=== PATIENT | female | born 1965 | race Caucasian/White ===

== ENCOUNTER 2019-12-15 07:52 | Outpatient (CLI) | payer OTHER, SELFPAY ==
--- NOTE | ~2019-12-15 | MM_ITS ---
EXAMINATION: MM screening mary BI w josesito HISTORY: Screening mammogram TECHNIQUE: Craniocaudal and mediolateral oblique 3-D tomosynthesis images were obtained and synthetic 2-D images were generated. CAD analysis was submitted and interpreted. COMPARISON: 06/27/2017 bilateral diagnostic digital mammogram 02/26/2017 bilateral diagnostic digital mammogram and Limited bilateral breast ultrasound 01/24/2017 and 12/13/2015 bilateral digital screening mammogram examinations BREAST PARENCHYMAL COMPOSITION: There are scattered areas of fibroglandular density. FINDINGS: There is a cluster of grouped microcalcifications in the lower outer left breast; magnifica tion views are recommended. There are some scattered benign calcifications elsewhere in each breast. Otherwise there is no evidence of suspicious mass, calcification, or architectural distortion to sugg est malignancy in either breast. There has been no suspicious interval change. IMPRESSION: Cluster of grouped macrocalcifications in the lower outer right breast; diagnostic mammogram with mag nification views is recommended. BI-RADS Category 0: Incomplete: Needs additional imaging evaluation. Reviewed, dictated and finalized at location A. IMPRESSION: Cluster of grouped macrocalcifications in the lower outer right breast; diagnos tic mammogram with magnification views is recommended. BI-RADS Category 0: Incomplete: Needs additional imaging evaluation.
== END 2019-12-15 07:53 | disposition home or self-care (01) ==
PROVIDERS: PCP Emergency Medicine; Visit Provider Emergency Medicine
DX: Z12.31 Encounter for screening mammogram for malignant neoplasm of breast (principal); R92.8 Other abnormal and inconclusive findings on diagnostic imaging of breast
CPT/HCPCS: 77063; 77067

== ENCOUNTER 2020-01-06 13:14 | Outpatient (CLI) | payer OTHER, SELFPAY ==
--- NOTE | ~2020-01-06 | MM_ITS ---
EXAMINATION: MM diagnostic mammo unilat RT HISTORY: Follow-up breast calcifications TECHNIQUE: Additional 3-D tomosynthesis images of the breasts were performed and synthetic 2-D images were generated. CAD analysis was submitted and interpreted. COMPARISON: Comparison to multiple prior studies sequentially, with oldest reviewed study dated 12/02. BREAST PARENCHYMAL COMPOSITION: Breast composed of scattered areas of fibroglandular density. FINDINGS: There are benign bilateral breast calcifications. Clustered calcifications in the lower asp ect of the right breast layer with medial lateral view, consistent with benign milk of calcium. No [place] spicious masses or architectural distortion. IMPRESSION: 1. No evidence for malignancy in either breast. Benign calcifications. 2. Routine yearly screening mammogram and regular clinical breast examination are recommended. BI-RADS Category 2: Benign finding(s). Reviewed, dictated and finalized at location A. IMPRESSION: 1. No evidence for malignancy in either breast. Benign calcifications. 2. Routine yearly screening mammogram and regular clinical breast examination a re recommended. BI-RADS Category 2: Benign finding(s).
== END 2020-01-06 13:15 | disposition home or self-care (01) ==
PROVIDERS: PCP Emergency Medicine; Visit Provider Emergency Medicine
DX: R92.0 Mammographic microcalcification found on diagnostic imaging of breast (principal)
CPT/HCPCS: 77066

== ENCOUNTER 2020-01-13 14:15 | Outpatient (CLI) | payer OTHER, SELFPAY ==
--- NOTE | ~2020-01-13 | XR_ITS ---
XR knee RT 2V 01/13/2020 14:42 Indication: Right knee pain Procedure: 2 views right knee Comparison: No prior studies for comparison. Findings: Mild osteoarthritis of the right knee. No fracture or traumatic malalignment. No significan t joint effusion. No foreign bodies. Normal anatomic alignment. Impression: 1: Mild osteoarthritis of the right knee. Reviewed, dictated and finalized at location B. Impression: 1: Mild osteoarthritis of the right knee.
== END 2020-01-13 14:16 | disposition home or self-care (01) ==
LOC: ANHIMG 14:21
PROVIDERS: PCP Emergency Medicine; Visit Provider Emergency Medicine
DX: M17.11 Unilateral primary osteoarthritis, right knee (principal)
CPT/HCPCS: 73560

== ENCOUNTER 2020-02-04 15:26 | Outpatient (CLI) | payer OTHER, SELFPAY ==
--- NOTE | ~2020-02-04 | MR_ITS ---
EXAMINATION: MR knee RT wo con DATE: 02/04/2020 16:39 INDICATION: Right knee pain TECHNIQUE: Magnetic resonance imaging (MRI) of the right knee was performed without intravenous contr ast. Sequences included coronal PD-weighted FSE, coronal PD-weighted FS FSE, sagittal T2-weighted FS E, sagittal PD-weighted FS FSE and axial PD weighted fat saturated FSE. COMPARISON: None. FINDINGS: Medial compartment: Medial meniscus is normal. Partial-thickness cartilage loss along the medial femoral condyle as well as the anterior to central weightbearing medial femoral condyle with mild chondral surface regularity along the central weightbearing medial femoral condyle. No degenerative subchondral changes. Lateral compartment: Complex lateral meniscal tear with longitudinal oblique tear plane extending to the inferior articula r surface at the lateral meniscal body and with small radial tear plane involving the inner third of the posterior horn of the lateral meniscus. Region of deep chondral fissuring without degenerative [place] bchondral changes extending from the central to the posterior lateral tibial plateau in the region of the radial tear. Similar fissuring without subchondral changes at the juxtaposed anterior weightbear ing medial femoral condyle. Patellofemoral compartment: Deep chondral ulceration and fissuring with underlying subarticular edema at the medial patellar face t and apical ridge. Less severe partial thickness fissuring without degenerative subchondral changes at the trochlear groove. Ligaments and tendons: Anterior and posterior cruciate ligaments are normal. There is thickening and mild increased signal o f the proximal fibular collateral ligament as well as of the proximal medial collateral ligament, bot h without significant surrounding edema and likely represents scarring related to chronic sprains. Th e extensor mechanism is normal. The visualized medial and lateral hamstring tendons as well as the il iotibial band are normal. Fluid: Moderate to large knee joint effusion. No loose osteochondral bodies identified. Mild prepatellar yulia ma without discrete bursal fluid collection. Osseous/other: Intraosseous ganglion cyst at the posterior aspect of the intercondylar eminence appears to arise stephy r the footplates of the posterior horn of the medial meniscus and the tibial insertion of the posteri or cruciate ligament. No fracture or pathologic marrow replacing process. IMPRESSION: 1. Complex lateral meniscal tear. 2. Mild tricompartmental osteoarthritis with regions of high-grade patellar chondromalacia and modera te grade chondromalacia at the trochlear groove and medial and lateral compartments. 3. Likely reactive moderate to large right knee joint effusion. Reviewed, dictated and finalized at location H. ND CLERK IMPRESSION: 1. Complex lateral meniscal tear. 2. Mild tricompartmental osteoarthritis with regions of high-grade patellar cho ndromalacia and moderate grade chondromalacia at the trochlear groove and media l and lateral compartments. 3. Likely reactive moderate to large right knee joint effusion.
== END 2020-02-04 15:27 | disposition home or self-care (01) ==
LOC: ANHIMG 15:27
PROVIDERS: PCP Emergency Medicine; Visit Provider Emergency Medicine
DX: M17.11 Unilateral primary osteoarthritis, right knee (principal); S83.271A Complex tear of lateral meniscus, current injury, right knee, initial encounter; M22.41 Chondromalacia patellae, right knee; M25.461 Effusion, right knee; M67.461 Ganglion, right knee
CPT/HCPCS: 73721

== ENCOUNTER 2020-09-16 20:25 | Emergency (ER) | payer OTHER, SELFPAY ==
--- NOTE | ~2020-09-16 | XR_ITS ---
XR chest 1V portable 09/16/2020 21:55 Indication: Cough and fever. History of pulmonary embolism. Procedure: AP portable chest Comparison: Comparison to multiple prior studies sequentially, with oldest reviewed study dated 04/2010. Findings: Stable right upper lobe nodule, previously characterized as benign hamartoma by CT. Heart s ize normal. Left lung clear. No pleural effusion. No edema or pneumothorax. No acute osseous abnormal ity. Impression: 1: No acute cardiopulmonary disease. Reviewed, dictated and finalized at location A. Impression: 1: No acute cardiopulmonary disease.
[2020-09-16 20:39] VITALS: BP 172/89; PULSE 78; RESP 20; TEMP 37.6; O2SAT 96
--- NOTE | 2020-09-16 22:35 | ED.URI ---
HPI - URI/Sore Throat General Chief Complaint: Upper Respiratory Infection Stated Complaint: sore throat, cough Time Seen by Provider: 09/16/20 22:28 Source: patient and RN notes reviewed Mode of arrival: ambulatory Limitations: no limitations History of Present Illness HPI Narrative: 55 years old white female complaining of runny nose, nasal congestion, postnasal discharge, sore throat, low-grade fever and a productive cough of clear sputum in the last few days. Covid test is negative at the urgent care today. Patient denies any shortness of breath or chest pain. Related Data Home Medications Medication Instructions Recorded Confirmed cholecalciferol (vitamin D3) 50 2,000 unit PO DAILY 03/19/19 04/18/20 mcg (2,000 unit) capsule Allergies Allergy/AdvReac Type Severity Reaction Status Date / Time No Known Allergies Allergy Verified 09/16/20 21:57 Review of Systems Review of Systems: Narrative: CONSTITUTIONAL: Denies fever, chills, or sweats. EYES: Denies visual changes, redness, or discharge. ENT: Denies rhinorrhea, congestion, sore throat, or otalgia. CARDIOVASCULAR: Denies chest pain, palpitations, or edema. RESPIRATORY: Denies cough or dyspnea. GASTROINTESTINAL: Denies abdominal pain, nausea, vomiting, or diarrhea. GENITOURINARY: Denies dysuria or hematuria. SKIN: Denies rash or itching. MUSCULOSKELETAL: Denies back pain, joint pain, or myalgia. NEUROLOGIC: Denies headache, numbness, or weakness. PSYCHIATRIC: Denies anxiety or depression. [facility] Past Medical History Medical History (Updated 09/16/20 @ 22:39 by Ammy Roman MD) Acid reflux Depression History of stroke 2004 2006 HLD (hyperlipidemia) Miscarriage Surgical History Surgical History H/O brain surgery 2004 2006 [place] teeth removed Family History Family History Mother Family history of premature coronary heart disease Family history of lung cancer, Onset Age: 53 Patient's mother is Family history of malignant neoplasm Sibling Hypertension Father Family history of osteoarthritis Family history of coronary artery disease Acute myocardial infarction Family history of arthritis Social History Social History Smoking status: Former smoker Alcohol intake: never Substance use: current Substance use type: marijuana Exam Narrative: Exam Narrative: General appearance: Well-developed, well-nourished Skin: Normal color Head: Normocephalic, nontraumatic Eyes: Clear conjunctiva ENT: Oropharyngeal erythema, postnasal clear discharge Neck: Supple, nontender Chest and respiratory: Airway patent, no respiratory distress, no accessory muscle use Heart: Regular rate/rhythm Abdomen: Soft, nontender, no organomegaly, quiet bowel sounds Vascular: Normal peripheral pulses, normal capillary refill. Musculoskeletal: Normal range of motion, nontender back Neurologic: Alert and oriented ?3, INS[employer] POWER [employer]IT [employer]ENDER is normal as tested, no gross motor deficit Course Course Emergency Course: Stable Vital Signs Vital signs: Vital Signs Temperature 37.6 C H 09/16/20 20:39 Pulse Rate 78 09/16/20 20:39 Respiratory Rate 20 09/16/20 20:39 Blood Pressure 172/89 H 09/16/20 20:39 Pulse Oximetry 96 09/16/20 20:39 Temperature 37.6 C H 09/16/20 20:39 Pulse Rate 78 09/16/20 20:39 Respiratory Rate 20 09/16/20 20:39 Blood Pressure 172/89 H 09/16/20 20:39 Pulse Oximetry 96 09/16/20 20:39 MDM - URI/Sore Throat MDM Narrative Medical decision making narrative: Respiratory viral infec
[2020-09-16 23:14] VITALS: BP 159/92; PULSE 79; RESP 18; O2SAT 95
== END 2020-09-16 23:15 | disposition home or self-care (01) ==
PROVIDERS: Emergency Provider Emergency Medicine; PCP Emergency Medicine
DX: J06.9 Acute upper respiratory infection, unspecified (principal); F32.9 Major depressive disorder, single episode, unspecified; E78.5 Hyperlipidemia, unspecified
CPT/HCPCS: 71045; 87081; 87880; 99283

== ENCOUNTER 2020-12-15 10:15 | Outpatient (CLI) | payer OTHER, SELFPAY ==
--- NOTE | ~2020-12-15 | MM_ITS ---
EXAMINATION: MM screening mary BI w josesito HISTORY: Screening mammogram TECHNIQUE: Craniocaudal and mediolateral oblique 3-D tomosynthesis images were obtained and synthetic 2-D images were generated. CAD analysis was submitted and interpreted. COMPARISON: 01/06/2020 bilateral diagnostic mammogram 12/15/2019 bilateral screening mammogram BREAST PARENCHYMAL COMPOSITION: There are scattered areas of fibroglandular density. FINDINGS: Occasional benign calcifications. There is no evidence of suspicious mass, calcification, o r architectural distortion to suggest malignancy in either breast. There has been no suspicious inter conchita change. IMPRESSION: 1. No mammographic evidence of malignancy. 2. Recommend routine screening mammography in one year. BI-RADS Category 2: Benign finding(s). Reviewed, dictated and finalized at location A.
== END 2020-12-15 10:16 | disposition home or self-care (01) ==
LOC: ANHIMG 10:17
PROVIDERS: PCP Family Medicine; Visit Provider Physician Assistant
DX: Z12.31 Encounter for screening mammogram for malignant neoplasm of breast (principal)
CPT/HCPCS: 77063; 77067

== ENCOUNTER 2023-05-23 00:17 | Day surgery (SDC) | payer OTHER, SELFPAY ==
[2023-05-09 14:30] VITALS: BMI 29.0
--- NOTE | 2023-05-16 16:03 | PC.NURSE ---
Spoke with PATIENT regarding medication WARFARIN. Pt. verbalizes understanding that the last dose of WARFARIN is to be taken on 05/18/2023 and the Endoscopist will instruct them when to restart after the procedure.
--- NOTE | 2023-05-21 14:59 | SUR.PREOP ---
Left message to confirm appointment
--- NOTE | 2023-05-22 12:59 | PM.HPGS ---
History of Present Illness History of Present Illness Consent: Risks, benefits, and alternatives have been discussed and questions answered. Patient agrees to proceed with procedure. Chief complaint: Hemorrhage of anus and rectum Narrative: Katelin Mcfadden is a 58 year old female undergoing colonoscopy for evaluation of rectal bleeding. Pt states she had intermittent rectal bleeding for past 2 years but over the past 3 months it has been daily. her last colonoscopy which was 7 years ago was unremarkable. She is on warfarin. Review of Systems Review of Systems: All systems reviewed & are unremarkable except as noted in HPI and below PMFSH Past Medical History Medical History Acid reflux Acute knee pain Acute meniscal tear of knee Depression [place] History of stroke 2004 2006 HLD (hyperlipidemia) HTN (hypertension) Hyperglycemia Knee pain Miscarriage Rectal bleeding Vitamin D deficiency disease Surgical History Surgical History H/O brain surgery 2004 2006 [place] teeth removed Family History Family History Mother Family history of premature coronary heart disease Family history of lung cancer, Onset Age: 53 Patient's mother is Family history of malignant neoplasm Sibling Hypertension Father Family history of osteoarthritis Family history of coronary artery disease Acute myocardial infarction Family history of arthritis Social History Social History Years smoked: 18 Smoking status: Former smoker Tobacco type: cigarettes Alcohol intake: current Substance use: never Substance use type: does not use Living arrangements: with family Spiritual care concerns: No Meds Home Medications and Allergies Home Medications Medication Instructions Recorded Confirmed Type cholecalciferol (vitamin D3) 50 2,000 unit PO DAILY 03/19/19 05/23/23 History mcg (2,000 unit) capsule (Vitamin D3) tramadol 50 mg tablet (Ultram) 50 mg PO Q6H PRN pain #30 tabs 05/25/19 05/23/23 Rx warfarin 1 mg tablet (Jantoven) 1 mg PO QMWF #90 tabs 02/11/20 05/23/23 Rx atorvastatin 20 mg tablet 20 mg PO DAILY #90 tabs 05/01/20 05/23/23 Rx amitriptyline 100 mg tablet See Rx Instructions .Route 05/22/20 05/23/23 Rx .COMPLEX #90 tabs losartan 50 mg-hydrochlorothiazide See Rx Instructions .Route 08/07/20 05/23/23 Rx 12.5 mg tablet .COMPLEX #90 tabs omeprazole 20 mg capsule,delayed See Rx Instructions .Route 10/09/20 05/23/23 Rx release .COMPLEX #180 caps warfarin 6 mg tablet (Jantoven) See Rx Instructions .Route 10/16/20 05/23/23 Rx .COMPLEX #90 tabs bupropion HCl 150 mg tablet,12 hr See Rx Instructions .Route 10/23/20 05/23/23 Rx sustained-release .COMPLEX #180 tabs hydrocortisone 2.5 % topical cream 1 applic RECTAL BID PRN 03/06/23 05/23/23 Rx with perineal applicator hemorrhoids #30 grams melatonin 5 mg tablet 5 mg PO HS PRN Insomnia 05/09/23 05/23/23 History sertraline 100 mg tablet 100 mg PO DAILY 05/09/23 05/23/23 History triamcinolone acetonide 0.1 % See Rx Instructions .Route 05/09/23 05/23/23 History topical cream .COMPLEX PRN ECCEMA Allergies Allergy/AdvReac Type Severity Reaction Status Date / Time adhesive tape Allergy Intermediate Rash Verified 05/23/23 09:09 Exam Resp: Auscultation: clear to auscultation bilaterally Cardio: Rate: regular rate Rhythm: regular rhythm GI: GI Palp: Yes Soft to palpation and No Tenderness to palpation present (GI) Assessment and Plan Assessment and plan (1) Rectal bleeding: Code(s): K62.5 - Hemorrhage of anus and rectum Status: Acute Assessment and Plan: Colonoscopy with possible biopsy or polypectomy or cautery or injection of substances.
[2023-05-23 09:11] VITALS: BP 140/91; PULSE 93; RESP 16; TEMP 36.6; O2SAT 97
[2023-05-23] MEDS: LACTATED RINGERS 1,000 ML 150 ML IV CONT (09:21)
--- NOTE | 2023-05-23 09:29 | WPDANESEPPF ---
Anes - Initial Pre Proc Eval Procedure: Operation Date: 05/23/23 10:00 Proposed Procedures p Colonoscopy - Mc Sherwood MD Date/Time: 05/23/23 09:29 Surgeon: Mc Sherwood MD Pre Op Diagnosis: Hemorrhage of anus and rectum Patient Data Age: 58 Gender: F Height: 1.7 m Weight: 87.1 kg Last Vital Signs Temp 36.6 C 05/23/23 09:11 Pulse 93 05/23/23 09:11 Resp 16 05/23/23 09:11 BP 140/91 H 05/23/23 09:11 Pulse Ox 97 05/23/23 09:11 O2 Del Method Room Air 05/23/23 09:11 Allergies Allergy/AdvReac Type Severity Reaction Status Date / Time adhesive tape Allergy Intermediate Rash Verified 05/23/23 09:09 Home Medications Medication Instructions Recorded Confirmed Type cholecalciferol (vitamin D3) 50 2,000 unit PO DAILY 03/19/19 05/23/23 History mcg (2,000 unit) capsule (Vitamin D3) tramadol 50 mg tablet (Ultram) 50 mg PO Q6H PRN pain #30 tabs 05/25/19 05/23/23 Rx warfarin 1 mg tablet (Jantoven) 1 mg PO QMWF #90 tabs 02/11/20 05/23/23 Rx atorvastatin 20 mg tablet 20 mg PO DAILY #90 tabs 05/01/20 05/23/23 Rx amitriptyline 100 mg tablet See Rx Instructions .Route 05/22/20 05/23/23 Rx .COMPLEX #90 tabs losartan 50 mg-hydrochlorothiazide See Rx Instructions .Route 08/07/20 05/23/23 Rx 12.5 mg tablet .COMPLEX #90 tabs omeprazole 20 mg capsule,delayed See Rx Instructions .Route 10/09/20 05/23/23 Rx release .COMPLEX #180 caps warfarin 6 mg tablet (Jantoven) See Rx Instructions .Route 10/16/20 05/23/23 Rx .COMPLEX #90 tabs bupropion HCl 150 mg tablet,12 hr See Rx Instructions .Route 10/23/20 05/23/23 Rx sustained-release .COMPLEX #180 tabs hydrocortisone 2.5 % topical cream 1 applic RECTAL BID PRN 03/06/23 05/23/23 Rx with perineal applicator hemorrhoids #30 grams melatonin 5 mg tablet 5 mg PO HS PRN Insomnia 05/09/23 05/23/23 History sertraline 100 mg tablet 100 mg PO DAILY 05/09/23 05/23/23 History triamcinolone acetonide 0.1 % See Rx Instructions .Route 05/09/23 05/23/23 History topical cream .COMPLEX PRN ECCEMA Patient hx anesthesia problems: none Family hx anesthesia problems: none Results Review: All pre-operative results and documents have been reviewed as part of the pre-operative evaluation. [facility] Past Medical History Medical History Acid reflux Acute knee pain Acute meniscal tear of knee Depression [place] History of stroke 2004 2006 HLD (hyperlipidemia) HTN (hypertension) Hyperglycemia Knee pain Miscarriage Rectal bleeding Vitamin D deficiency disease Surgical History Surgical History H/O brain surgery 2004 2006 [place] teeth removed Family History Family History Mother Family history of premature coronary heart disease Family history of lung cancer, Onset Age: 53 Patient's mother is Family history of malignant neoplasm Sibling Hypertension Father Family history of osteoarthritis Family history of coronary artery disease Acute myocardial infarction Family history of arthritis Social History Social History Years smoked: 18 Smoking status: Former smoker Tobacco type: cigarettes Alcohol intake: current Substance use: never Substance use type: does not use Living arrangements: with family Spiritual care concerns: No Anes - Eval Final PreProcedure Day of Procedure 05/23/23 09:29 Patient weight: obese Heart: regular rate and rhythm Lungs: clear to auscultation Airway: Mallampati scale class II Neurological: alert and oriented Last oral intake: >/= 8 hours ASA classification: III Emergent: no Anesthetic plan: proceed Anesthesia type and monitoring: general GIVS and standard monitoring Results Review: All pre-operative results and documents have been reviewed as part of the
[2023-05-23 10:26] VITALS: BP 140/58; PULSE 72; RESP 21; O2SAT 99
[2023-05-23 10:36] VITALS: BP 123/53; PULSE 78; RESP 20; O2SAT 99
[2023-05-23 10:46] VITALS: BP 158/80; PULSE 64; RESP 15; O2SAT 100
== END 2023-05-23 10:53 | disposition home or self-care (01) ==
PROVIDERS: PCP Nurse Practitioner Family; Visit Provider Internal Medicine Gastroenterology
PROC: 0DJD8ZZ Inspection of Lower Intestinal Tract, Via Natural or Artificial Opening Endoscopic (ICD-10-PCS; CPT 45378; principal; 2023-05-23 10:00)
DX: K64.8 Other hemorrhoids (principal); K92.1 Melena; K21.9 Gastro-esophageal reflux disease without esophagitis; I10 Essential (primary) hypertension; E78.5 Hyperlipidemia, unspecified; R73.9 Hyperglycemia, unspecified; E55.9 Vitamin D deficiency, unspecified; F32.A Depression, unspecified; E66.9 Obesity, unspecified; Z68.30 Body mass index [BMI] 30.0-30.9, adult; Z79.891 Long term (current) use of opiate analgesic; Z79.01 Long term (current) use of anticoagulants; Z98.890 Other specified postprocedural states; Z87.891 Personal history of nicotine dependence; Z86.73 Personal history of transient ischemic attack (TIA), and cerebral infarction without residual deficits; Z82.49 Family history of ischemic heart disease and other diseases of the circulatory system; Z80.1 Family history of malignant neoplasm of trachea, bronchus and lung
CPT/HCPCS: 45378; J2704; J7120

== ENCOUNTER → 2023-10-13 14:06 | Outpatient (CLI) | payer OTHER, SELFPAY ==
--- NOTE | ~2023-10-13 | XR_ITS ---
XR cervical spine 4-5V Ordering provider: Crys Gamble, SECONDS INSPECTOR History: . NECK PAIN ON RT SIDE M54.2 NO INJURY X 5 MONTHS . Comparison: None. FINDINGS: VERTEBRAL BODIES: Normal height and alignment. No visible fracture or subluxation. The dens is intact . DISK SPACES: Narrowing of the disc at the level of C5-C6 and C6-C7. Narrowing of the foramina in the lower cervical area bilaterally. Multilevel uncovertebral joint osteoarthritic changes. Multilevel fa cet joint disease. PARASPINOUS SOFT TISSUES: No prevertebral soft tissue swelling. IMPRESSION: No acute osseous abnormality cervical spine. Multilevel degenerative disc disease. Reviewed, dictated and finalized at location A.
== END ==
PROVIDERS: PCP Nurse Practitioner Family; Visit Provider Nurse Practitioner Family
DX: M50.30 Other cervical disc degeneration, unspecified cervical region (principal)
CPT/HCPCS: 72050